=== PATIENT | female | born 1985 | race Two or more races ===

== ENCOUNTER 2019-10-24 18:45 | Emergency (ER) | payer OTHER ==
[~2019-10-24] VITALS: Ht 165.1 cm; Wt 64.5 kg
[2019-10-24 18:50] VITALS: BP 146/91
[2019-10-24] MEDS ORDERED: BUPR300T49 PO (19:12)
[2019-10-24] MEDS ORDERED: ATOM40CA PO (19:12)
[2019-10-24] MEDS ORDERED: CITA10TA8 PO (19:12)
[2019-10-24] MEDS ORDERED: OMEG1CAP23 PO (19:13)
[2019-10-24] MEDS ORDERED: LORazepam 2 MG/ML, 1ML IVPush ONE (20:00)
[2019-10-24] MEDS ORDERED: SODIUM CHLORIDE 0.9% 1,000ML IVBOLUS ONE (20:00)
[2019-10-24] MEDS ORDERED: SODIUM CHLORIDE FLUSH 10ML SYR IVF ONE (20:00)
[2019-10-24] MEDS ORDERED: LORazepam 2 MG/ML, 1ML ONE (20:12)
--- NOTE | 2019-10-24 20:33 | NUR ---
Call received from Rodrick Mack, who stated he is the father of Chel Hernandez's children and would like an update on the patient. I spoke to Chel, who gave me verbal permission to speak with Rodrick. I advised Rodrick that hCel had only been here about 2 hours and that she was still be worked up. I advised Rodrick of the information that Chel provided regarding her triage note regarding alcohol use. 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 Rodrick also stated that Chel had a plane ticket to return home tomorrow around noon. I advised Rodrick it would be several hours more before we had any further information. Rodrick verbalized understanding.
[2019-10-24 20:55] LABS: BASOPHILS # (AUTO) 0.02 x10^3/uL (0-0.1); BASOPHILS % (AUTO) 0 % (0-1); EOSINOPHILS # (AUTO) 0.15 x10^3/uL (0-0.4); EOSINOPHILS % (AUTO) 1 % (1-7); LYMPHOCYTES # (AUTO) 2.16 x10^3/uL (1-3.4); LYMPHOCYTES % (AUTO) 17 % (22-44); MD NO; MEAN CORPUSCULAR HEMOGLOBIN 29.2 pg (27.0-34.8); MEAN CORPUSCULAR HGB CONC 33.5 g/dL (32.4-35.8); MEAN CORPUSCULAR VOLUME 87.4 fL (80-100); MEAN PLATELET VOLUME 8.4 fL (7.4-10.4); MONOCYTES # (AUTO) 1.17 x10^3/uL (0.2-0.8); MONOCYTES % (AUTO) 9 % (2-9); NEUTROPHILS # (AUTO) 9.55 x10^3/uL (1.8-6.8); NEUTROPHILS % (AUTO) 73 % (42-75); PLATELET COUNT 421 x10^3/uL (130-400); RED BLOOD COUNT 4.62 x10^6/uL (3.82-5.3); RED CELL DISTRIBUTION WIDTH 12.6 % (9.6-15.2)
[2019-10-24 21:08] LABS: ALANINE AMINOTRANSFERASE 26 U/L (12-78); ANION GAP 10 mmol/L (5-15); CALCIUM 9.2 mg/dL (8.5-10.1); CHLORIDE 105 mmol/L (98-107); CREATININE 0.95 mg/dL (0.55-1.02)
[2019-10-24 21:13] LABS: ALKALINE PHOSPHATASE 83 U/L (45-117); BILIRUBIN,TOTAL 0.6 mg/dL (0.2-1.0); CREATINE KINASE, TOTAL 151 U/L (26-192); TOTAL PROTEIN 7.7 g/dL (6.4-8.2)
[2019-10-24] MEDS ORDERED: POTASSIUM CHLORIDE 20 MEQ TAB.ER.PRT PO ONE (21:30)
== END 2019-10-24 21:49 | disposition home or self-care (01) ==
LOC: ED 21:30
DX: F41.1 Generalized anxiety disorder (principal); R06.4 Hyperventilation; E87.6 Hypokalemia; R42 Dizziness and giddiness; R00.0 Tachycardia, unspecified; F17.210 Nicotine dependence, cigarettes, uncomplicated
CPT/HCPCS: 36415; 80053; 82550; 82962; 85025; 87040; 93005; 96361; 96374; 99284; 99406; J2060; J7030